=== PATIENT | male | born 1990 | race Caucasian/White ===

== ENCOUNTER 2023-01-24 15:46 | Observation (INO) | payer OTHER, BC ==
[~2023-01-24 15:46] MED LIST: Iopamidol-370 76% 500 ML 1 ML ONE
[2023-01-24 16:30] LABS: #Basophils 0.1 thou/uL (0.0-0.2); #Eosinphils 0.5 thou/uL (0.0-0.7); #Lymphocytes 3.7 thou/uL (1.20-3.40); #Neutrophils 8.9 thou/uL (1.40-6.50); %Basophils 0.7 % (0.0-1.0); %Eosinophils 3.3 % (0.0-10.0); %Neutrophils 63.1 % (42.0-75.0); Hemoglobin 14.7 g/dL (14.0-18.0); Mean Corpuscular HGB CONC 33.9 g/dL (32.0-36.0); Mean Corpuscular Hemoglobin 32.6 pg (27.0-31.0); Mean Corpuscular Volume 96.4 fl (78.0-98.0); Mean Platelet Volume 7.8 fL (7.4-10.4); Platelet Count 290 10x3/uL (130-400); RBC Distribution Width 11.5 % (11.5-14.5); Red Blood Cell (RBC) Count 4.52 mill/uL (4.70-6.10); White Blood Cell (WBC) Count 14.1 10x3/uL (4.8-10.8)
[2023-01-24 16:44] LABS: INR-International Normal Ratio 0.9; Prothrombin Time 12.9 sec (12.0-14.7)
[2023-01-24 16:45] LABS: PTT 23.8 sec (22.9-36.1)
[2023-01-24 16:48] LABS: ALT (SGPT) 34 U/L (8-55); AST (SGOT) 27 U/L (5-34); Albumin 4.1 g/dL (3.5-5.0); Alkaline Phosphatase 51 U/L (40-110); Anion Gap 15 mmol/L (10-20); BUN (Urea Nitrogen) 20 mg/dL (8.9-20.6); Bilirubin, Total 0.3 mg/dL (0.2-1.2); Calc. Creatinine Clearance 0 mL/min (70-130); Calcium 9.2 mg/dL (7.8-10.44); Carbon Dioxide 19 mmol/L (22-29); Chloride 109 mmol/L (98-107); Estimated GFR 108; Globulin 3.1 g/dL (2.4-3.5); Glucose 156 mg/dL (70-105); Lipase 31 U/L (8-78); Potassium 3.8 mmol/L (3.5-5.1); Protein, Total 7.2 g/dL (6.0-8.3); Sodium 139 mmol/L (136-145)
[2023-01-24] MEDS ORDERED: Boostrix 0.5 ML (Tdap) VIAL (>/=7 yrs of age) ONE (17:09)
[2023-01-24] MEDS ORDERED: CEFAZOLIN 2 GM VIAL ONE (17:40)
[2023-01-24] MEDS ORDERED: Morphine 4 MG/ML VIAL ONE (17:42)
[2023-01-24] MEDS ORDERED: Lidocaine 1% w/Epinephrine 1:100K 20 ML VIAL ONE (17:49)
[2023-01-24 17:57] LABS: CK (CPK) 130 U/L (30-200)
[2023-01-24 17:58] LABS: Phosphorus 1.1 mg/dL (2.3-4.7)
[2023-01-24] MEDS ORDERED: Aspirin 325 MG TAB ONE (18:21)
[2023-01-24] MEDS ORDERED: Aspirin Chewable 81 MG TAB ONE (18:27)
[2023-01-24] MEDS ORDERED: Dextrose 50% Abboject 50 ML SYRINGE SLOW IVP PRN (18:29)
[2023-01-24] MEDS ORDERED: Morphine 4 MG/ML VIAL SLOW IVP PRN ×2 (18:29→19:17)
[2023-01-24] MEDS ORDERED: hydrALAZINE 20 MG/ML VIAL SLOW IVP PRN (18:29)
[2023-01-24] MEDS ORDERED: Ondansetron PF 4 MG/2 ML Vial IVP PRN (18:29)
[2023-01-24] MEDS ORDERED: Dextrose 5% in Water 1,000 ML IV PRN (18:29)
[2023-01-24] MEDS ORDERED: Ipratropium/Albuterol 3 ML NEB NEB PRN (18:29)
[2023-01-24] MEDS ORDERED: Ondansetron ODT 4 MG TAB PO PRN (18:29)
[2023-01-24] MEDS ORDERED: Morphine 2 MG/ML VIAL SLOW IVP PRN (18:29)
[2023-01-24] MEDS ORDERED: Aspirin 325 MG TAB PO SCH (18:30)
[2023-01-24] MEDS ORDERED: Sodium Chloride 0.9% 1,000 ML IV SCH (18:30)
[2023-01-24] MEDS ORDERED: Cyclobenzaprine 10 MG TAB PO PRN (18:35)
[2023-01-24] MEDS ORDERED: Acetaminophen 500 MG TAB PO SCH (19:15)
[2023-01-24] MEDS ORDERED: traMADol HCl 50 MG TAB PO SCH (19:15)
[2023-01-24] MEDS: Senokot S 8.6-50 MG TAB PO SCH (21:26)
[2023-01-24] MEDS: Gabapentin 300 MG CAP PO SCH (21:27)
[2023-01-24 23:44] LABS: SARS-CoV-2 NAA Rapid Test Not Detected (NotDetected)
[2023-01-25] MEDS: traMADol HCl 50 MG TAB PO SCH ×4 (00:10→17:17)
[2023-01-25] MEDS: Acetaminophen 500 MG TAB PO SCH ×4 (00:10→17:17)
[2023-01-25 03:12] VITALS: BMI 29.0
[2023-01-25 07:34] LABS: #Basophils 0.1 thou/uL (0.0-0.2); #Eosinphils 0.1 thou/uL (0.0-0.7); #Lymphocytes 2.3 thou/uL (1.20-3.40); #Monocytes 1.2 thou/uL (0.11-0.59); #Neutrophils 9.5 thou/uL (1.40-6.50); %Basophils 0.5 % (0.0-1.0); %Eosinophils 0.6 % (0.0-10.0); %Lymphocytes 17.5 % (21.0-51.0); %Monocytes 8.9 % (0.0-10.0); %Neutrophils 72.4 % (42.0-75.0); Hemoglobin 13.9 g/dL (14.0-18.0); Mean Corpuscular HGB CONC 33.8 g/dL (32.0-36.0); Mean Corpuscular Hemoglobin 32.9 pg (27.0-31.0); Mean Corpuscular Volume 97.4 fl (78.0-98.0); Mean Platelet Volume 7.9 fL (7.4-10.4); Platelet Count 222 10x3/uL (130-400); RBC Distribution Width 11.7 % (11.5-14.5); Red Blood Cell (RBC) Count 4.22 mill/uL (4.70-6.10); White Blood Cell (WBC) Count 13.1 10x3/uL (4.8-10.8)
[2023-01-25 08:17] LABS: Anion Gap 12 mmol/L (10-20); BUN (Urea Nitrogen) 16 mg/dL (8.9-20.6); Calc. Creatinine Clearance 191 mL/min (70-130); Calcium 8.6 mg/dL (7.8-10.44); Carbon Dioxide 19 mmol/L (22-29); Chloride 112 mmol/L (98-107); Estimated GFR 123; Glucose 106 mg/dL (70-105); Phosphorus 3.7 mg/dL (2.3-4.7); Potassium 3.8 mmol/L (3.5-5.1); Sodium 139 mmol/L (136-145)
[2023-01-25] MEDS ORDERED: Aspirin 325 MG TAB PO SCH (09:00)
[2023-01-25] MEDS ORDERED: Polyethylene Glycol 3350 17 GM Packet PO SCH (09:00)
[2023-01-25] MEDS: Senokot S 8.6-50 MG TAB PO SCH (09:26)
[2023-01-25] MEDS: Gabapentin 300 MG CAP PO SCH ×2 (09:27→15:14)
[2023-01-25 16:23] VITALS: BP 132/78; TEMP 98.5
[2023-01-26] MEDS ORDERED: Escitalopram Oxalate 10 mg Tablet PO SCH (09:00)
[2023-01-28] MEDS ORDERED: FLU VACC QS2022-23(6MOS UP)/PF 60 MCG/0.5 ML SYRINGE IM ONE (03:30)
== END 2023-01-25 18:06 | disposition home or self-care (01) ==
LOC: ERS 15:46 → SURG A 18:34
PROVIDERS: ADMIT Surgery; ATTEND Surgery
DX: S06.0X9A Concussion with loss of consciousness of unspecified duration, initial encounter (principal); I77.74 Dissection of vertebral artery; S12.591A Other nondisplaced fracture of sixth cervical vertebra, initial encounter for closed fracture; S22.040A Wedge compression fracture of fourth thoracic vertebra, initial encounter for closed fracture; S22.050A Wedge compression fracture of T5-T6 vertebra, initial encounter for closed fracture; S22.31XA Fracture of one rib, right side, initial encounter for closed fracture; S01.01XA Laceration without foreign body of scalp, initial encounter; R40.2412 Glasgow coma scale score 13-15, at arrival to emergency department; F84.0 Autistic disorder; Z79.899 Other long term (current) drug therapy; Z88.0 Allergy status to penicillin; Z20.822 Contact with and (suspected) exposure to COVID-19; V47.5XXA Car driver injured in collision with fixed or stationary object in traffic accident, initial encounter
CPT/HCPCS: 36415; 70450; 70496; 70498; 71045; 71260; 72125; 72170; 74177; 80048; 80053; 82550; 83690; 83735; 84100; 85025; 85610; 85730; 86850; 86900; 86901; 90471; 90715; 93005; 96365; 96375; G0378; G0390; J2270; J7030; J7050; L0172; L0174; Q9967; U0002

== ENCOUNTER 2023-02-05 10:07 | Outpatient (CLI) | payer BC | END 2023-02-05 10:08 | disposition home or self-care (01) | LOC: TBSIIMAG 10:07 | PROVIDERS: ATTEND Physician Assistant | DX: S12.591A Other nondisplaced fracture of sixth cervical vertebra, initial encounter for closed fracture (principal) | CPT/HCPCS: 72040 ==

== ENCOUNTER 2023-03-10 12:27 | Outpatient (CLI) | payer BC | END 2023-03-10 12:28 | disposition home or self-care (01) | LOC: CT 12:27 | PROVIDERS: ATTEND Neurological Surgery | DX: S12.500D Unspecified displaced fracture of sixth cervical vertebra, subsequent encounter for fracture with routine healing (principal); S12.400D Unspecified displaced fracture of fifth cervical vertebra, subsequent encounter for fracture with routine healing; S22.31XD Fracture of one rib, right side, subsequent encounter for fracture with routine healing; S02.113D Unspecified occipital condyle fracture, subsequent encounter for fracture with routine healing | CPT/HCPCS: 72125 ==

== ENCOUNTER 2023-03-13 15:23 | Outpatient (CLI) | payer BC | END 2023-03-13 15:24 | disposition home or self-care (01) | LOC: TBSIIMAG 15:23 | PROVIDERS: ATTEND Neurological Surgery | DX: S12.9XXA Fracture of neck, unspecified, initial encounter (principal); M43.12 Spondylolisthesis, cervical region | CPT/HCPCS: 72040 ==